=== PATIENT | female | born 1935 | race Caucasian/White ===

== ENCOUNTER 2018-10-01 16:12 | Inpatient (IN) | payer OTHER ==
[~2018-10-01] VITALS: Ht 152.4 cm; Wt 61.2 kg
[2018-10-01 16:23] VITALS: BP 119/67
[2018-10-01] MEDS ORDERED: ATORVASTATIN CA40 MG PO (16:34)
[2018-10-01] MEDS ORDERED: ACETAMINOPHEN325 M3 PO (16:34)
[2018-10-01] MEDS ORDERED: CARDIZEM CD240 MG PO (16:35)
[2018-10-01] MEDS ORDERED: CELEXA20 MG PO (16:35)
[2018-10-01] MEDS ORDERED: D-20002000 UNIT PO (16:35)
[2018-10-01] MEDS ORDERED: COLACE100 MG PO (16:36)
[2018-10-01] MEDS ORDERED: LASIX 40 MG TAB40 M2 PO (16:37)
[2018-10-01] MEDS ORDERED: IRON325 PO (16:37)
[2018-10-01] MEDS ORDERED: MAGOX 400400 MG PO (16:38)
[2018-10-01] MEDS ORDERED: AMARYL4 MG PO (16:38)
[2018-10-01] MEDS ORDERED: GLUCOPHAGE1000 MG PO (16:39)
[2018-10-01] MEDS ORDERED: TOPROL XL25 MG PO (16:42)
[2018-10-01] MEDS ORDERED: PROTONIX40 M1 PO (16:43)
[2018-10-01] MEDS ORDERED: KLOR-CON 1010 MEQ PO (16:44)
[2018-10-01] MEDS ORDERED: TRAMADOL 50 MG50 MG PO (16:44)
[2018-10-01] MEDS ORDERED: CARAFATE 1 GM TA1 G1 PO (16:44)
[2018-10-01 16:47] LABS: ABSOLUTE EOSINOPHILS 0.1 thou/uL (0.0-0.7); ABSOLUTE LYMPHOCYTES 1.3 thou/uL (0.8-5.3); ABSOLUTE MONOCYTES 0.8 thou/uL (0.0-1.2); ABSOLUTE NEUTROPHILS 6.4 thou/uL (1.6-8.1); BASOPHILS 0.5 %; EOSINOPHILS 1.5 %; HEMATOCRIT 34.6 % (37.0-47.0); HEMOGLOBIN 11.7 gm/dL (12.0-15.0); LYMPHOCYTES 14.9 %; MCH 27.9 pg (26.0-34.0); MCHC 33.9 g/dL (28.0-37.0); MCV 82.3 fL (80.0-100.0); MONOCYTES 8.9 %; MPV 7.3 fl. (7.2-11.1); NUCLEATED RBCS 0 /100WBC; PLATELET COUNT* 215 thou/uL (150-400); POLYS 74.2 %; RDW-CV 20.3 % (10.5-14.5); WBC 8.7 thou/uL (4.0-11.0)
[2018-10-01 16:58] LABS: ALBUMIN 3.4 g/dL (3.4-5.0); CALCIUM 8.1 mg/dL (8.5-10.1); CREATININE 1.4 mg/dL (0.6-1.3); TOTAL BILIRUBIN 0.6 mg/dL (<0.1-1.0)
[2018-10-01 17:04] LABS: POTASSIUM 2.3 mmol/L (3.5-5.1)
[2018-10-01 17:36] LABS: PLATELET ESTIMATE ADEQUATE
[2018-10-01 17:37] LABS: ANISOCYTOSIS 2+
[2018-10-01 17:38] LABS: MICROCYTES Occasional
[2018-10-01 20:48] VITALS: BP 119/67
[2018-10-01 21:30] VITALS: BP 122/48
[2018-10-02] VITALS: BP 119/56
[2018-10-02 00:45] LABS: URINE BILIRUBIN NEGATIVE (Negative); URINE BLOOD NEGATIVE (Negative); URINE CLARITY CLEAR; URINE COLOR YELLOW; URINE GLUCOSE-RANDOM NEGATIVE (Negative); URINE KETONES NEGATIVE (Negative); URINE LEUKOCYTES-REFLEX NEGATIVE (Negative); URINE NITRITE-REFLEX NEGATIVE (Negative); URINE PROTEIN NEGATIVE (Negative); URINE SPECIFIC GRAVITY <= 1.005 (1.005-1.030); URINE UROBILINOGEN 0.2 E.U./dl (0.2-1.0)
--- NOTE | 2018-10-02 02:40 | NUR ---
ASSUMED CARE OF PATIENT FROM ER. DENIES PAIN, SOA OR N/V. VERY [place] TRIBE BUT ABLE TO ANSWER ALL ADMISSION QUESTIONS. ELECTROLYTE PROTOCOL FOLLOWED, WAITING FOR AM LABS FOR NEXT DOSE. NO OTHER CONCERNS AT THIS TIME. WILL CONTINUE TO MONITOR.
[2018-10-02 04:33] VITALS: BP 127/57
[2018-10-02 05:21] LABS: ABSOLUTE EOSINOPHILS 0.2 thou/uL (0.0-0.7); ABSOLUTE LYMPHOCYTES 0.9 thou/uL (0.8-5.3); ABSOLUTE MONOCYTES 0.6 thou/uL (0.0-1.2); BASOPHILS 0.5 %; EOSINOPHILS 3.8 %; HEMATOCRIT 30.4 % (37.0-47.0); HEMOGLOBIN 10.4 gm/dL (12.0-15.0); LYMPHOCYTES 15.9 %; MCH 27.6 pg (26.0-34.0); MCHC 34.1 g/dL (28.0-37.0); MCV 81.1 fL (80.0-100.0); MONOCYTES 10.3 %; MPV 7.8 fl. (7.2-11.1); NUCLEATED RBCS 0 /100WBC; PLATELET COUNT* 171 thou/uL (150-400); POLYS 69.5 %; RBC 3.75 mil/uL (4.20-5.00); RDW-CV 19.9 % (10.5-14.5); WBC 5.8 thou/uL (4.0-11.0)
[2018-10-02 05:55] LABS: CALCIUM 7.7 mg/dL (8.5-10.1); CREATININE 1.3 mg/dL (0.6-1.3)
[2018-10-02 05:56] LABS: POTASSIUM 3.6 mmol/L (3.5-5.1)
[2018-10-02 08:26] VITALS: BP 124/58
--- NOTE | 2018-10-02 10:30 | NUR ---
RECEIVED REPORT AND ASSUMED CARE OF PT AT 0715.PT IS A/OX4.IS ON RA.NEW IV PLACED ON RFA.MG REPLACED PER THE PROTOCOL.UP WITH ASSIST.PT IS PLACED UNDER HIGH FALL RISK DUE TO HX OF FALL.TRACING SR ON THE MONITOR.HRLY ROUNDING DONE.CALL LIGHT AND FALL PRECAUTIONS IN PLACE.WILL CONTINUE TO MONITOR.
--- NOTE | 2018-10-02 10:39 | EKG ---
[place] [address] ELECTROCARDIOGRAM REPORT Name: MARYALISHA Lorenzo Room: [address] ADM IN [facility]#: [id number] Admission: 10/01/18 Attend Phys: Inocencio Porter MD Discharge: Date of : 37 Report #: [id number] THIS REPORT FOR: //name// [facility] ED Test Date: 2018-10-01 Test Time: 16:58:29 Pat Name: ALISHA HERNANDEZ Department: Room: [facility] Gender: F High Value Associate: EAN : 1935 Requested By: Jaelyn Mota Order Number: [id number] MD: Yunior Gunderson Measurements Intervals [place] Rate: 72 P: 79 VA: 155 QRS: -19 QRSD: 180 T: 136 QT: 479 QTc: 525 Interpretive Statements Sinus rhythm Atrial premature complexes Left bundle branch block Compared to ECG 10/10/2007 07:57:51 Atrial premature complex(es) now present Electronically Signed On 10-02-2018 10:38:48 CDT by Yunior Gunderson [email or web address] <ELECTRONICALLY SIGNED> By: Yunior Gunderson MD, FACC 10/02/18 1038 [id number] [id number] Yunior Gunderson MD, FACC /EPI
[2018-10-02 12:00] VITALS: BP 128/59
[2018-10-02 16:22] VITALS: BP 134/58
[2018-10-02 17:41] VITALS: BP 134/58
--- NOTE | 2018-10-02 18:16 | NUR ---
RECEIVED MG LAB RESULT AND DR NOTIFIED.PT OK TO DISCHARGE.DISCHARGE PAPER WORK COMPLETED.IV AND HEART MONITOR REMOVED.DISCHARGE EDUCATIONS PROVIDED.EDUCATIONS GIVEN ON NEW MEDS SCRIPTS.ALL PERSONAL BELONGINGS HANDED OVER TO PT.PT WHEELED WITH SPOUSE BY NURSING STAFF TO HER VEHICLE.
--- NOTE | 2018-10-02 18:22 | NUR ---
THIS NURSE REVIEWED [facility] LIB[facility] FERRER'S CHARTING AND NURSING NOTES AND AGREES WITH INFORMATION.IV REMOVED BEFORE DISCHARGE.HEART MONITOR REMOVED AND RETURNED TO NURSING STATION.
== END 2018-10-02 18:00 | disposition home or self-care (01) | DRG 683 ==
LOC: M.ERS 16:12 → M.TBA-ER 18:36 → M.2W 18:36
PROVIDERS: Nurse Practitioner Family; ADMIT Internal Medicine
DX: N17.9 Acute kidney failure, unspecified (principal); I13.0 Hypertensive heart and chronic kidney disease with heart failure and stage 1 through stage 4 chronic kidney disease, or unspecified chronic kidney disease; E87.1 Hypo-osmolality and hyponatremia; E11.22 Type 2 diabetes mellitus with diabetic chronic kidney disease; N18.3 Chronic kidney disease, stage 3 (moderate); E87.6 Hypokalemia; I48.91 Unspecified atrial fibrillation; E78.00 Pure hypercholesterolemia, unspecified; E83.42 Hypomagnesemia; I50.9 Heart failure, unspecified; Z96.651 Presence of right artificial knee joint; Z90.710 Acquired absence of both cervix and uterus; Z90.12 Acquired absence of left breast and nipple; Z90.49 Acquired absence of other specified parts of digestive tract; Z88.6 Allergy status to analgesic agent; Z88.0 Allergy status to penicillin; Z88.2 Allergy status to sulfonamides; Z88.8 Allergy status to other drugs, medicaments and biological substances; Z79.899 Other long term (current) drug therapy